=== PATIENT | female | born 1975 | race Caucasian/White ===

== ENCOUNTER 2025-05-24 06:24 | Emergency (ER) | payer BC, OTHER ==
[~2025-05-24] VITALS: Ht 154.9 cm; Wt 50.8 kg
[2025-05-24 06:26] VITALS: BP 159/107; TEMP 97.6
[2025-05-24 07:09] VITALS: O2SAT 100
[2025-05-24 07:16] LABS: CALCIUM, SERUM 8.8 mg/dL (8.5-10.1); CREATININE 0.8 mg/dL (0.6-1.3); SODIUM SERUM 137.0 mmol/L (136-145); UREA NITROGEN, BLOOD 13.0 mg/dL (7-18)
[2025-05-24 07:22] LABS: ASPARTATE AMINOTRANSFERASE 13.0 U/L (15-37); TOTAL PROTEIN, SERUM 8.0 g/dL (6.4-8.2)
[2025-05-24 20:18] LABS: HIV-1/2 ANTIBODY NON REACTIVE (NONREACTIVE)
[2025-05-25 03:07] LABS: HEPATITIS B SURFACE AB (QUAL) Reactive (.)
== END 2025-05-24 07:13 | disposition home or self-care (01) ==
LOC: ER 06:27
DX: S60.511A Abrasion of right hand, initial encounter (principal); Z77.21 Contact with and (suspected) exposure to potentially hazardous body fluids; Z60.2 Problems related to living alone; X58.XXXA Exposure to other specified factors, initial encounter; Y93.89 Activity, other specified; Y92.89 Other specified places as the place of occurrence of the external cause; Y99.8 Other external cause status
CPT/HCPCS: 36415; 80053-TC; 86706; 86803; 87806

== ENCOUNTER 2025-06-07 09:42 | Outpatient (CLI) | payer BC, OTHER | END 2025-06-07 23:59 | disposition home or self-care (01) | LOC: US 09:42 | PROVIDERS: ATTEND Family Medicine | DX: R10.9 Unspecified abdominal pain (principal) | CPT/HCPCS: 76700-TC ==